=== PATIENT | male | born 1950 | race Caucasian/White ===

== ENCOUNTER → 2017-04-07 | Outpatient (CLI) | payer MEDICARE, BC, OTHER ==
[~2017-04-07] MED LIST: ABILIFY5 MG PO; ASPIRIN E.C. 8181 MG PO; BRILINTA90 MG PO; CPAP; DESYREL 100MG100 MG PO; FIORICET 325 MG1 TA1 PO; FLOMAX 0.40.4 MG/CAP PO; GLUCOPHAGE1000 MG PO; HYZAAR 12.5 MG-1 TAB PO; KLONOPIN 1MG1 MG PO; LOPRESSOR100 MG PO; NEXIUM 40MG40 MG PO; NORVASC 5MG5 MG/TAB PO; OMEGA-3 FISH1200 MG PO; PERIACTIN 4MG TA4 MG PO; PROAIR HFA0.09 MG/AC IH; SINGULAIR 110 MG/TAB PO; SYNTHROID0.175 MG PO; THEO-24 30300 MG/CAP PO; TRICOR145 MG PO; VYTORIN 10 MG-41 TAB PO
== END ==
LOC: COL.RAD 10:20
DX: I70.213 Atherosclerosis of native arteries of extremities with intermittent claudication, bilateral legs (principal); Z95.828 Presence of other vascular implants and grafts; Z90.49 Acquired absence of other specified parts of digestive tract
CPT/HCPCS: Q9967

== ENCOUNTER → 2019-04-03 | Outpatient (CLI) | payer MEDICARE, BC, OTHER ==
[~2019-04-03] MED LIST changes: +ATARAX 25MG25 MG/TAB PO; +HCTZ 25MG TAB25 MG PO; +MASON NATURAL1200 MG PO; -OMEGA-3 FISH1200 MG PO; +PLAVIX 75MG TAB75 MG PO; +PROTONIX 40MG T40 MG PO; +RT ADVAIR HFA 1112 G IH; +ZESTRIL 20MG TA20 MG PO; +ZOLOFT 100MG100 MG PO
== END ==
LOC: COL.RAD 12:24
DX: M51.26 Other intervertebral disc displacement, lumbar region (principal)

== ENCOUNTER → 2020-04-10 | Outpatient (CLI) | payer MEDICARE, BC, OTHER | LOC: COL.RAD 13:01 | DX: M51.26 Other intervertebral disc displacement, lumbar region (principal); M51.36 Other intervertebral disc degeneration, lumbar region ==

== ENCOUNTER 2022-06-02 07:00 | Day surgery (SDC) | payer MEDICARE, BC, OTHER ==
[~2022-06-02] VITALS: Ht 172.7 cm; Wt 94.5 kg
[2022-06-02 07:34] VITALS: BP 149/72; PULSE 54; TEMP 97.8
[2022-06-02] MEDS ORDERED: RT ADVAIR HFA 1112 G IH (07:44)
[2022-06-02] MEDS ORDERED: VISTARIL 2525 MG/CAP PO (07:44)
[2022-06-02] MEDS ORDERED: ZETIA 10MG TAB10 MG PO (07:44)
[2022-06-02] MEDS ORDERED: ZOCOR 20MG20 MG PO (07:45)
[2022-06-02 09:00] VITALS: BP 143/70; PULSE 48; TEMP 97
--- NOTE | 2022-06-02 09:11 | NUR ---
0900 - PT arrives from procedure, and was settled by Ebony QUIROGA. Written report then obtained; snack and drink provided. Call de jesus is within reach; PT denies pain/nausea. Non-slip socks remain on.
[2022-06-02 09:15] VITALS: BP 160/119; PULSE 49
[2022-06-02 09:30] VITALS: BP 141/73; PULSE 46
--- NOTE | 2022-06-02 09:31 | NUR ---
0915 - PT continues to eat/drink. Call de jesus remains within reach. Vitals obtained. 0930 - PT has finished snack and drink; denies pain/nasuea and expressed desire to be discharged. Call de jesus remains within reach.
--- NOTE | 2022-06-02 09:39 | NUR ---
0930 - IV discontinued. Catheter tip intact and pressure bandage applied; no redness or swelling noted. DC instructions and educational material reviewed w/ PT who verbalized understanding and signed the related paperwork. Questions answered to PT satisfaction. PT refused RN assistance changing into personal clothes; call de jesus remains within reach, non-slip socks are on and visitor is present.
--- NOTE | 2022-06-02 09:51 | NUR ---
0945 - PT dismissed from endo via wheelchair to the PT entrence by Anitra QUIROGA. PT has DC packet and personal belongings; PT was transferred into the care of his , who is driving private truck.
== END 2022-06-02 09:50 | disposition home or self-care (01) ==
LOC: SDCO 07:00
DX: D12.0 Benign neoplasm of cecum (principal); K64.0 First degree hemorrhoids; Z87.891 Personal history of nicotine dependence
CPT/HCPCS: J2704; J7120

== ENCOUNTER → 2023-01-01 | Outpatient (CLI) | payer MEDICARE, BC ==
[~2023-01-01] MED LIST changes: +VISTARIL 2525 MG/CAP PO; +ZETIA 10MG TAB10 MG PO; +ZOCOR 20MG20 MG PO
== END ==
LOC: COL.RAD 07:45
DX: M54.32 Sciatica, left side (principal)

== ENCOUNTER 2024-07-01 00:44 | Inpatient (IN) | payer MEDICARE, BC ==
[2024-07-01] VITALS (706 sets, daily range): BP systolic 130–202; BP diastolic 73–96; PULSE 55–78; TEMP 97.9–99; O2SAT 90–100
[~2024-07-01] VITALS: Ht 172.7 cm; Wt 99.0 kg
[~2024-07-01 00:44] MED LIST changes: +NORVASC 10MG10 MG PO; -NORVASC 5MG5 MG/TAB PO; -ZESTRIL 20MG TA20 MG PO; +ZESTRIL40 MG PO
[2024-07-01] MEDS ORDERED: NITROSTAT0.4 MG/TAB SL (02:06)
--- NOTE | 2024-07-01 03:02 | NUR ---
RECEIVED REPORT FROM BRENDA DA SILVA RN AT [facility]. PATIENT ARRIVED TO UNIT AT 0106 BY EMS. PATIENT ALERT, ORIENTED AND WALKS INDEPENDTLY. PATIENT ON CARDENE DRIP UPON ARRIVAL. PATIENT ORIENTED TO UNIT. BELONGINGS INCLUDE, NITROGLYCERIN, SHIRT, JEANS, BELT, PHONE AND SHOES. NO ACUTE EVENTS.
[2024-07-01] MEDS ORDERED: Acetaminophen 500 MG TAB PO PRN (03:30)
[2024-07-01] MEDS ORDERED: Ondansetron 4 MG/2 ML VIAL IV PRN (03:30)
[2024-07-01] MEDS ORDERED: Albuterol 0.042% Neb Soln 1.25 MG/3 ML UD IH PRN (05:15)
[2024-07-01 05:20] LABS: GRAN # 4.3 K/mm3 (1.4-6.5); GRAN % 62.5 % (42.2-75.2); HEMATOCRIT 34.9 % (42.0-52.0); HEMOGLOBIN 11.5 g/dl (13.5-18.0); LYMPH # 1.9 K/mm3 (1.2-3.4); LYMPH % 28.2 % (20.0-51.0); MEAN CELL VOLUME 81 fl (80.0-100.0); MEAN CORPUSCULAR HEMOGLOBIN 27 pg (27-31); MEAN CORPUSCULAR HGB CONC 33 g/dl (33.0-37.0); MEAN PLATELET VOLUME 10.7 fl (7.4-10.4); MONO # 0.6 K/mm3 (0.1-0.6); PLATELET COUNT 215 K/mm3 (130-400); RED BLOOD COUNT 4.32 M/mm3 (4.20-5.60)
[2024-07-01 05:29] LABS: CALCIUM 9.8 mg/dL (8.4-10.2); CREATININE, serum 1.29 mg/dL (0.72-1.25); POTASSIUM 4.4 mEq/L (3.5-4.5)
[2024-07-01] MEDS ORDERED: Dextrose 50% Water 25 GM/50 ML SYRINGE IV PRN (05:30)
[2024-07-01] MEDS ORDERED: Dextrose (Glucose) 15 GM (4 x 3.75 GM) Chewable TABLET PACK PO PRN (05:30)
[2024-07-01] MEDS ORDERED: Glucagon 1 MG VIAL IM PRN (05:30)
[2024-07-01] MEDS ORDERED: niCARdipine 200 ML IV SCH (05:45)
[2024-07-01] MEDS ORDERED: WIXELA 250-501 EACH IH (06:15)
[2024-07-01] MEDS ORDERED: IMDUR 30MG30 MG/TAB PO (06:15)
[2024-07-01] MEDS ORDERED: WIXELA 500-501 EACH IH (06:16)
[2024-07-01] MEDS ORDERED: REQUIP 0.5MG0.5 MG PO (06:17)
[2024-07-01] MEDS ORDERED: CYMBALTA 20MG20 MG PO (06:21)
[2024-07-01] MEDS ORDERED: SPIRIVA RE2.5 MCG/Ac IH (06:24)
[2024-07-01] MEDS ORDERED: BYSTOLIC20 MG PO (06:31)
--- NOTE | 2024-07-01 07:00 | NUR ---
REPORT RECEIVED FROM JUNAID RUBY. PT SITTING ON EDGE OF BED AT THIS TIME. REMAINS ON CARDENE GTT AT 5MG/HR. ALERT AND ORIENTED WITH CALL LIGHT IN REACH. C/O RESTLESS LEGS WITH SPASMS AND HEADACHE RATED 5/10.
[2024-07-01] MEDS ORDERED: Insulin Lispro (HumaLOG) SQ SCH (08:00)
[2024-07-01] MEDS ORDERED: EPIPEN 2-PAK1 MG/ML IM (08:40)
[2024-07-01] MEDS ORDERED: VALIUM 5MG T5 MG/TAB PO (08:41)
[2024-07-01] MEDS ORDERED: Lisinopril 20 MG TAB PO SCH ×3 (09:00→10:37)
[2024-07-01] MEDS ORDERED: amLODIPine 10 MG TAB PO SCH ×2 (09:00→10:37)
[2024-07-01] MEDS ORDERED: amLODIPine 5 MG TAB PO SCH (09:00)
[2024-07-01] MEDS ORDERED: Famotidine 20 MG TAB PO SCH (09:00)
[2024-07-01] MEDS ORDERED: Clopidogrel 75 MG TAB PO SCH (09:00)
[2024-07-01] MEDS ORDERED: hydroCHLOROthiazide 25 MG TAB PO SCH (09:00)
[2024-07-01] MEDS ORDERED: Bisoprolol 5 MG TAB PO SCH (09:00)
[2024-07-01] MEDS ORDERED: Ezetimibe 10 MG TAB PO SCH (09:00)
[2024-07-01] MEDS ORDERED: Metoprolol Tartrate 50 MG TAB PO SCH (09:00)
[2024-07-01] MEDS ORDERED: Nebivolol 20 MG **** subs to Bisoprolol 20 MG PO SCH (09:00)
--- NOTE | 2024-07-01 09:55 | NUR ---
SW met with patient to complete intake assessment and discuss discharge planning. Patient reports that he resides in [place] with his Odalys (Jayla prefers) [phone]. Patient reports that his PCP is Dr Young and pharmacy of choice is [facility]. Patient reports that he does use some DMEs for his diabetic care and inhaler, no additional DMEs at this time reported. Patient informed that he does not have DPOA on file at this time, but is reviewing with his spouse. Patient was provided information that hospital does have forms if interested. Patient reports that he is independent with his ADLs and anticipating to discharge back to his residence, pending any further medical recommendations.
[2024-07-01] MEDS ORDERED: Tiotropium 2.5 MCG Respimat MDI IH SCH (10:35)
[2024-07-01] MEDS ORDERED: Isosorbide Mononitrate CR (24-HR) 30 MG TAB PO SCH (10:36)
[2024-07-01] MEDS ORDERED: Omega-3 Fatty Acid Esters (OTC) 1,000 MG CAP PO SCH (10:39)
[2024-07-01] MEDS ORDERED: EPINEPHrine 0.3 MG/0.3 ML Auto Injector IM PRN (10:45)
[2024-07-01] MEDS ORDERED: rOPINIRole 0.5 MG TAB PO ONE (11:15)
--- NOTE | 2024-07-01 12:24 | NUR ---
Data: Patient declined spiritual care visit offered during [employer] rounds, but he was open to having some small talk before his family arrived. Discussed his visits to the ER at [facility]. Assessment: No spiritual needs at this time. Plan of Care: Chaplains will remain available as needed/requested while Patient is admitted to this hospital.
[2024-07-01] MEDS ORDERED: Acetamin/Butalbital/Caffeine 325-50-40 MG TAB PO PRN (12:30)
--- NOTE | 2024-07-01 15:15 | NUR ---
PT TRANSFERED TO MEDICAL ROOM 307. REPORT GIVEN TO STEPHEN. PT IN POSSESSION OF ALL BELONGINGS AT TIME OF TRANSFER. PT'S FAMILY PRESENT IN 307 UPON ARRIVAL. PT SITTING IN CHAIR WITH CALL LIGHT IN REACH; OFFERS NO COMPLAINTS.
--- NOTE | 2024-07-01 16:00 | NUR ---
PATIENT ARRIVED TO MEDICAL FLOOR AT APPROX 1500. PATIENT IS AMBULATORY, ALERT, AND ORIENTED. AT BEDSIDE. VSS. SHIFT ASSESSEMENT COMPLETE. NO SKIN ISSUES NOTED. PATIENT PACING AROUND ROOM. PATIENT REPORTS HE IS "ALWAYS ANXIOUS D/T PTSD AND RESTLESS LEG SYNDROME." PATIENT DENIES PAIN OR DISCOMFORT. PATIENT ORIENTED TO ROOM. CALL LIGHT WITHIN REACH.
[2024-07-01] MEDS ORDERED: Formoterol 20 MCG,Budesonide 0.5 MG IH SCH (19:00)
[2024-07-01] MEDS ORDERED: Zolpidem 5 MG TAB PO SCH (21:00)
[2024-07-01] MEDS ORDERED: Fenofibrate 54 MG TABLET PO SCH (21:00)
[2024-07-01] MEDS ORDERED: Montelukast 10 MG TAB PO SCH (21:00)
[2024-07-01] MEDS ORDERED: rOPINIRole 0.5 MG TAB PO SCH (21:00)
[2024-07-01] MEDS ORDERED: Atorvastatin 20 MG TAB PO SCH (21:00)
[2024-07-02 01:23] VITALS: BP 146/72; PULSE 51; TEMP 98
[2024-07-02 01:25] VITALS: BP_SYST 146
[2024-07-02 04:21] VITALS: BP 148/62; PULSE 51; TEMP 98.1
[2024-07-02 04:25] VITALS: BP_SYST 148
[2024-07-02 06:31] LABS: GRAN # 4.3 K/mm3 (1.4-6.5); GRAN % 60.9 % (42.2-75.2); HEMATOCRIT 32.3 % (42.0-52.0); HEMOGLOBIN 10.3 g/dl (13.5-18.0); LYMPH # 2.1 K/mm3 (1.2-3.4); LYMPH % 30.3 % (20.0-51.0); MEAN CELL VOLUME 82 fl (80.0-100.0); MEAN CORPUSCULAR HEMOGLOBIN 26 pg (27-31); MEAN CORPUSCULAR HGB CONC 32 g/dl (33.0-37.0); MEAN PLATELET VOLUME 11.1 fl (7.4-10.4); MONO # 0.6 K/mm3 (0.1-0.6); MONO % 8.7 % (1.7-9.3); PLATELET COUNT 189 K/mm3 (130-400); RED BLOOD COUNT 3.94 M/mm3 (4.20-5.60); REDCELL DISTRIBUTION WIDTH-CV 15.1 % (11.5-14.5)
[2024-07-02 06:43] LABS: CALCIUM 9.5 mg/dL (8.4-10.2); CHOLESTEROL RISK RATIO 4.9; CREATININE, serum 1.39 mg/dL (0.72-1.25); MAGNESIUM 1.8 mg/dL (1.6-2.6); POTASSIUM 4.2 mEq/L (3.5-4.5)
[2024-07-02] MEDS ORDERED: Fenofibrate (Tricor) 145 MG **** subs to Fenofibrate (Lofibra) 162 MG PO SCH (09:00)
[2024-07-02] MEDS ORDERED: DULoxetine 20 MG CAP PO SCH (09:00)
[2024-07-02 09:43] VITALS: BP_SYST 148
[2024-07-02] MEDS ORDERED: LIPITOR20 MG PO (10:00)
[2024-07-02] MEDS ORDERED: BYSTOLIC10 MG PO (10:01)
[2024-07-02] MEDS ORDERED: ASPIRIN E.C. 8181 MG PO (10:02)
[2024-07-02] MEDS ORDERED: IMDUR 60MG60 MG/TAB PO (10:09)
--- NOTE | 2024-07-02 12:00 | NUR ---
THIS RN PROVIDED PATIENT WITH DISCHARGE EDUCATION AND INSTRUCTIONS. ALL QUESTIONS ANSWERED.
--- NOTE | 2024-07-02 12:58 | NUR ---
PATIENT AMBULATED OFF UNIT WITH RN. ALL BELONGINGS WITH PATIENT.
== END 2024-07-02 12:15 | disposition home or self-care (01) | DRG 305 ==
LOC: IMCU 00:44 → ICU 01:08 → MEDICAL 15:20
PROVIDERS: Physician Assistant; ADMIT Internal Medicine
DX: I16.0 Hypertensive urgency (principal); E11.22 Type 2 diabetes mellitus with diabetic chronic kidney disease; I12.9 Hypertensive chronic kidney disease with stage 1 through stage 4 chronic kidney disease, or unspecified chronic kidney disease; N18.9 Chronic kidney disease, unspecified; E78.5 Hyperlipidemia, unspecified; J44.9 Chronic obstructive pulmonary disease, unspecified; G47.33 Obstructive sleep apnea (adult) (pediatric); Z87.891 Personal history of nicotine dependence; I25.10 Atherosclerotic heart disease of native coronary artery without angina pectoris; E03.9 Hypothyroidism, unspecified; Z79.890 Hormone replacement therapy; E11.51 Type 2 diabetes mellitus with diabetic peripheral angiopathy without gangrene; Z79.84 Long term (current) use of oral hypoglycemic drugs; Z79.82 Long term (current) use of aspirin
CPT/HCPCS: A9270; J1815; J2404